=== PATIENT | female | born 1975 | race Caucasian/White ===

== ENCOUNTER 2025-01-24 13:02 | Inpatient (IN) | payer BC ==
[~2025-01-24] VITALS: Ht 157.5 cm; Wt 84.8 kg
[2025-01-24] MEDS: ASPIRIN 81MG TABLET PO ONE (13:15)
[2025-01-24 14:11] LABS: BASOPHILS % 0.6 % (0.0-2.0); EOSINOPHILS % 1.0 % (0.0-5.0); HEMATOCRIT. 38.8 % (36.0-48.0); HEMOGLOBIN. 13.3 g/dL (12.0-16.0); LYMPHOCYTES % 29.3 % (20.0-50.0); MEAN PLATELET VOLUME 9.1 fl (7.4-10.4); MONOCYTES % 5.5 % (2.0-8.0); NEUTROPHILS % 63.6 % (40.0-76.0); PLATELET 199 x1000/uL (130-400); RED BLOOD CELL COUNT 4.28 mill/uL (4.2-5.4); RED CELL DISTRIBUTION WIDTH 15.6 % (11.6-14.6)
[2025-01-24 14:21] LABS: INR 1.0
[2025-01-24 14:30] LABS: CREATININE 0.8 mg/dL (0.6-1.0); UREA NITROGEN BLOOD 8 mg/dL (9-23)
[2025-01-24 14:31] LABS: TROPONIN I HIGH SENSITIVITY 7 ng/L (3.0-34)
[2025-01-24 14:40] LABS: ETHANOL BLOOD 375 mg/dL (<10)
[2025-01-24 14:47] LABS: *AMPHETAMINES SCREEN URINE NEGATIVE (NEGATIVE); *BARBITURATES SCREEN URINE NEGATIVE (NEGATIVE); *BENZODIAZEPINES SCREEN URINE NEGATIVE (NEGATIVE); *COCAINE SCREEN URINE NEGATIVE (NEGATIVE); CANNABINOID URINE SCREEN PRESUMPTIVE POSITIVE (NEGATIVE); ECSTASY MDMA SCREEN URINE NEGATIVE (NEGATIVE); METHADONE URINE SCREEN NEGATIVE (NEGATIVE); OPIATES URINE SCREEN NEGATIVE (NEGATIVE); PHENCYCLIDINE URINE SCREEN NEGATIVE (NEGATIVE)
[2025-01-24 15:49] LABS: TROPONIN I HIGH SENSITIVITY 8 ng/L (3.0-34)
[2025-01-24] MEDS ORDERED: VISCOUS LIDOCAINE 2% 15 ML UDC MM STA (17:01)
[2025-01-24] MEDS: POTASSIUM CHLORIDE 20MEQ TABLET SR PO SCH (17:16)
[2025-01-24] MEDS: MAGNESIUM/ALUMINUM HYDROXIDE/SIMETHICONE 30ML UDC PO ONE (17:16)
[2025-01-24 17:23] LABS: TROPONIN I HIGH SENSITIVITY 9 ng/L (3.0-34)
[2025-01-24] MEDS ORDERED: DOCUSATE SODIUM 100MG CAPSULE PO PRN (18:30)
[2025-01-24] MEDS ORDERED: IPRATROPIUM/ALBUTEROL 0.5-3(2.5)MG/3ML NEB HHN PRN (18:30)
[2025-01-24] MEDS ORDERED: MAGNESIUM/ALUMINUM HYDROXIDE/SIMETHICONE 30ML UDC PO PRN (18:30)
[2025-01-24] MEDS ORDERED: ACETAMINOPHEN 325MG TABLET PO PRN (18:30)
[2025-01-24] MEDS: VISCOUS LIDOCAINE 2% 15 ML UDC MM SCH (18:47)
[2025-01-24 19:33] LABS: CREATININE 0.8 mg/dL (0.6-1.0); UREA NITROGEN BLOOD 8 mg/dL (9-23)
[2025-01-24] MEDS ORDERED: TRAZ-251 PO (22:01)
[2025-01-24] MEDS ORDERED: HYDR12.54 PO (22:01)
[2025-01-24] MEDS ORDERED: QUET300T2 PO (22:01)
[2025-01-24] MEDS ORDERED: LEVO50TA PO (22:01)
[2025-01-24] MEDS ORDERED: OLAN-37 MT (22:01)
[2025-01-24] MEDS ORDERED: TEMA30CA5 PO (22:01)
[2025-01-24] MEDS ORDERED: METH-653 MT (22:01)
[2025-01-24] MEDS ORDERED: LOSA100T33 PO (22:01)
[2025-01-24] MEDS ORDERED: ESCI10TA PO (22:01)
[2025-01-24] MEDS: CHLORDIAZEPOXIDE 25MG CAPSULE PO PRN (22:40)
[2025-01-24] MEDS: GUAIFENESIN 200MG/10ML SUGAR FREE UDC PO PRN (22:40)
[2025-01-24] MEDS: MULTIVITAMINS,THER W-MINERALS TABLET PO SCH (22:41)
[2025-01-24] MEDS: ONDANSETRON HCL 4MG/2ML INJ IV PRN (22:41)
[2025-01-24] MEDS: FOLIC ACID 1MG TABLET PO SCH (22:41)
[2025-01-24] MEDS: THIAMINE HCL 100MG TABLET PO SCH (22:41)
[2025-01-24] MEDS: POTASSIUM CHLORIDE 20MEQ TABLET SR PO NR (22:41)
[2025-01-24] MEDS: MVI, ADULT NO.1 10 ML, THIAMINE HCL 100 MG, FOLIC ACID 1 MG in SODIUM CHLORIDE 0.9% 1,0... IV SCH (23:08)
[2025-01-24 23:23] VITALS: BP 177/86; PULSE 95; RESP 20; TEMP 36.696
[2025-01-24] MEDS: HYDRALAZINE 20MG/ML VIAL IV PRN (23:30)
[2025-01-25] VITALS: BP 150/98; PULSE 94; RESP 20; TEMP 36.7; O2SAT 99
[2025-01-25 01:10] LABS: TROPONIN I HIGH SENSITIVITY 13 ng/L (3.0-34)
[2025-01-25] MEDS: DIPHENHYDRAMINE 50MG/ML VIAL IV PRN (01:51)
[2025-01-25 04:00] VITALS: BP 147/78; PULSE 85; RESP 20; TEMP 37; O2SAT 97
[2025-01-25 06:58] LABS: BASOPHILS % 0.6 % (0.0-2.0); EOSINOPHILS % 0.1 % (0.0-5.0); HEMATOCRIT. 36.8 % (36.0-48.0); HEMOGLOBIN. 12.7 g/dL (12.0-16.0); LYMPHOCYTES % 21.0 % (20.0-50.0); MEAN PLATELET VOLUME 9.6 fl (7.4-10.4); MONOCYTES % 7.2 % (2.0-8.0); NEUTROPHILS % 71.1 % (40.0-76.0); PLATELET 176 x1000/uL (130-400); RED BLOOD CELL COUNT 4.09 mill/uL (4.2-5.4); RED CELL DISTRIBUTION WIDTH 15.6 % (11.6-14.6)
[2025-01-25 07:14] LABS: TROPONIN I HIGH SENSITIVITY 10.0 ng/L (3.0-34)
[2025-01-25 07:18] LABS: T4 FREE 1.21 ng/dL (0.89-1.76)
[2025-01-25 07:42] LABS: HEPATITIS C AB NON REACTIVE (Neg) (Negative)
[2025-01-25 08:00] VITALS: BP 173/88; PULSE 73; RESP 18; TEMP 36.4; O2SAT 98
[2025-01-25] MEDS: LOSARTAN 25 MG TABLET PO SCH (09:19)
[2025-01-25 12:00] VITALS: BP 144/84; PULSE 81; RESP 20; TEMP 36.7; O2SAT 96
[2025-01-25 13:41] LABS: BASOPHILS % 0.7 % (0.0-2.0); EOSINOPHILS % 0.4 % (0.0-5.0); HEMATOCRIT. 40.0 % (36.0-48.0); HEMOGLOBIN. 13.3 g/dL (12.0-16.0); LYMPHOCYTES % 32.8 % (20.0-50.0); MEAN PLATELET VOLUME 9.5 fl (7.4-10.4); MONOCYTES % 9.3 % (2.0-8.0); NEUTROPHILS % 56.8 % (40.0-76.0); PLATELET 166 x1000/uL (130-400); RED BLOOD CELL COUNT 4.31 mill/uL (4.2-5.4); RED CELL DISTRIBUTION WIDTH 15.5 % (11.6-14.6)
[2025-01-25 13:58] LABS: CREATININE 0.7 mg/dL (0.6-1.0); UREA NITROGEN BLOOD 10 mg/dL (9-23)
[2025-01-25] MEDS ORDERED: LORAZEPAM 1MG TABLET PO PRN (14:45)
[2025-01-25 16:00] VITALS: BP 160/90; PULSE 69; RESP 20; TEMP 37; O2SAT 96
[2025-01-25 20:00] VITALS: BP 152/80; PULSE 95; RESP 18; TEMP 36.2; O2SAT 98
[2025-01-25] MEDS: LORAZEPAM 1MG TABLET PO PRN (21:22)
[2025-01-25] MEDS: ACETAMINOPHEN 325MG TABLET PO PRN (23:50)
[2025-01-26] VITALS: BP 122/68; PULSE 81; RESP 18; TEMP 36.1; O2SAT 97
[2025-01-26 04:00] VITALS: BP 153/90; PULSE 73; RESP 18; TEMP 36.1; O2SAT 97
[2025-01-26 07:14] LABS: BASOPHILS % 0.7 % (0.0-2.0); EOSINOPHILS % 1.9 % (0.0-5.0); HEMATOCRIT. 38.3 % (36.0-48.0); HEMOGLOBIN. 13.3 g/dL (12.0-16.0); LYMPHOCYTES % 41.1 % (20.0-50.0); MEAN PLATELET VOLUME 9.5 fl (7.4-10.4); MONOCYTES % 6.6 % (2.0-8.0); NEUTROPHILS % 49.7 % (40.0-76.0); PLATELET 138 x1000/uL (130-400); RED BLOOD CELL COUNT 4.21 mill/uL (4.2-5.4); RED CELL DISTRIBUTION WIDTH 14.7 % (11.6-14.6)
[2025-01-26 07:17] LABS: CREATININE 0.9 mg/dL (0.6-1.0); UREA NITROGEN BLOOD 11 mg/dL (9-23)
[2025-01-26 07:19] LABS: ASPARTATE AMINOTRANSFERASE 62 IU/L (<34); BILIRUBIN DIRECT 0.4 mg/dL (<=3.0); BILIRUBIN TOTAL 1.0 mg/dL (0.1-1.0); PROTEIN TOTAL 7.0 g/dL (6.0-8.3)
[2025-01-26 08:23] VITALS: BP 98/56; PULSE 80; RESP 18; TEMP 36.6; O2SAT 99
[2025-01-26] MEDS: LOSARTAN 100 MG TABLET PO SCH (08:31)
[2025-01-26] MEDS ORDERED: AMLODIPINE 5MG TABLET PO SCH (09:00)
[2025-01-26 12:28] VITALS: BP 130/82; PULSE 84; RESP 18; TEMP 36.2; O2SAT 98
[2025-01-26] MEDS ORDERED: HYDROXYZINE 25MG TABLET PO PRN (13:45)
[2025-01-26 16:29] VITALS: BP 132/82; PULSE 88; RESP 18; TEMP 36.4; O2SAT 99
[2025-01-26] MEDS ORDERED: THIA100T72 PO (17:33)
[2025-01-26] MEDS ORDERED: FOLI-43 PO (17:33)
[2025-01-26] MEDS ORDERED: OLAN5TAB74 PO (17:33)
[2025-01-26] MEDS ORDERED: LOSA100T33 PO (17:33)
[2025-01-26 17:57] VITALS: BP 132/83; PULSE 88; TEMP 97.6; O2SAT 99
[2025-01-26] MEDS ORDERED: FOLI-43 MT (18:12)
[2025-01-26] MEDS ORDERED: OLAN5TAB74 MT (18:12)
[2025-01-26] MEDS ORDERED: THIA100T72 MT (18:12)
[2025-01-26] MEDS ORDERED: OLANZAPINE 5MG TABLET PO SCH (21:00)
== END 2025-01-26 18:45 | disposition home or self-care (01) | DRG 392 ==
LOC: ER 13:02 → EDBEDREQTM 17:09 → EDBEDREQ 17:09 → 8WST 21:14
PROVIDERS: ADMIT Internal Medicine; ATTEND Internal Medicine
DX: K21.9 Gastro-esophageal reflux disease without esophagitis (principal); F31.30 Bipolar disorder, current episode depressed, mild or moderate severity, unspecified; F10.139 Alcohol abuse with withdrawal, unspecified; R07.89 Other chest pain; E03.9 Hypothyroidism, unspecified; F41.9 Anxiety disorder, unspecified; F10.129 Alcohol abuse with intoxication, unspecified; E87.6 Hypokalemia; Y90.8 Blood alcohol level of 240 mg/100 ml or more; I11.9 Hypertensive heart disease without heart failure; R91.1 Solitary pulmonary nodule; D72.829 Elevated white blood cell count, unspecified; J44.9 Chronic obstructive pulmonary disease, unspecified; Z74.09 Other reduced mobility; E05.00 Thyrotoxicosis with diffuse goiter without thyrotoxic crisis or storm; R58 Hemorrhage, not elsewhere classified; F19.10 Other psychoactive substance abuse, uncomplicated; S92.314A Nondisplaced fracture of first metatarsal bone, right foot, initial encounter for closed fracture; S92.324A Nondisplaced fracture of second metatarsal bone, right foot, initial encounter for closed fracture; S92.344A Nondisplaced fracture of fourth metatarsal bone, right foot, initial encounter for closed fracture; W18.39XA Other fall on same level, initial encounter; Y93.89 Activity, other specified; Y92.89 Other specified places as the place of occurrence of the external cause; Z85.118 Personal history of other malignant neoplasm of bronchus and lung; Y99.8 Other external cause status
CPT/HCPCS: 36415; 71045; 71275; 73620; 73700; 80048; 80076; 80305; 80320; 82550; 83735; 83880; 84439; 84443; 84484; 85025; 85379; 86705; 87340; 93005; 97116; 97162; 99285; J0360; J1200; J2405; J3411; J3490; J7030; G0480